=== PATIENT | female | born 1990 | race Two or more races ===

== ENCOUNTER 2021-07-18 18:53 | Emergency (ER) | payer OTHER ==
[~2021-07-18] VITALS: Ht 162.6 cm; Wt 58.1 kg
== END 2021-07-19 16:20 | disposition home or self-care (01) ==
LOC: ER 18:53
DX: N93.8 Other specified abnormal uterine and vaginal bleeding (principal)

== ENCOUNTER → 2023-03-02 | Emergency (ER) | payer OTHER ==
[~2023-03-02] VITALS: Ht 162.6 cm; Wt 56.7 kg
== END | disposition home or self-care (01) ==
LOC: ER 16:37
DX: N93.9 Abnormal uterine and vaginal bleeding, unspecified (principal); R10.2 Pelvic and perineal pain; Z88.6 Allergy status to analgesic agent